=== PATIENT | female | born 1980 | race Caucasian/White ===

== ENCOUNTER 2020-10-09 15:56 | Observation (INO) | payer OTHER ==
[~2020-10-09 15:56] MED LIST: ceFAZolin 1 GM in Premix Bag 1 BAG IV SCH
[2020-10-09 16:12] VITALS: PULSE 75
[2020-10-09] MEDS ORDERED: Dextrose 5%-Lactated Ringers 1,000 ML ONE (16:42)
[2020-10-09] MEDS ORDERED: Dextrose 5%-Lactated Ringers 1,000 ML IV SCH ×2 (16:45→19:30)
--- NOTE | 2020-10-09 17:55 | US ---
Biophysical profile: Multiple real-time images were obtained transabdominally. Comparison: No previous obstetrical imaging is available. Dates: Working LILLIE: 11/08/20, gestational age 35 weeks 5 days Current ultrasound: LILLIE 11/02/20, gestational age 36 weeks 4 days presentation: Cephalic, no findings of placental abruption or previa Placenta: Anterior Amniotic fluid: AUGIE 16.4 cm Measurements: BPD: 8.96 cm - 36 weeks 2 days Head circumference: 32.92 cm - 37 weeks 3 days Abdominal circumference: 33.58 cm - 37 weeks 3 days Femur length: 6.85 cm - 35 weeks 1 day Estimated weight: 3032 g (6 lbs. 11 oz.), estimated weight at the 79th percentile for age by working LILLIE Heart rate: 140 bpm Cervical length: 4.4 cm Biophysical profile: movement 2, breathing movement 2, tone 2, amniotic fluid volume 2 Impression: 1. Single intrauterine fetus currently cephalic in presentation. Dates as noted above. 2. 8 out of 8 on biophysical profile. 3. No evidence of placental abruption or placenta previa. Diagnostic code #1
[2020-10-09] MEDS ORDERED: NIFEdipine 10 MG Cap PO ONE ×2 (18:07→19:24)
[2020-10-09] MEDS ORDERED: Betamethasone Acetate/Betamethasone Sod Phosphate 30 MG/5 ML MDV IM SCH (19:30)
--- NOTE | 2020-10-09 19:46 | PCM.LDHP ---
L&D History of Present Illness - General Date of Service: 10/09/20 Admit Problem/Dx: Patient Status Order with Admit Dx/Problem 10/09/20 16:07 Patient Status [ADT] Routine Admission Diagnosis/Problem Admission Diagnosis/Problem Source of Information: Patient History Limitations: Reports: No Limitations - History of Present Illness Introduction:: 40-year-old -0-0-1 LILLIE 11/08/2020 estimated gestational age today 35 weeks 5 days patient seen yesterday with threatened labor contractions subsided and patient was dismissed no cervical changes. Patient return to labor and delivery today complaining of contractions noted to be having contractions every 3 to 5 minutes on nonstress test which was reactive with at least 2 variable decelerations corrected with change of position. Patient has had no leakage of fluid no dysuria frequency or urgency however a straight cath UA returned no nitrites few bacteria patient had GBS collected yesterday and returned positive today patient will be started on ampicillin. Patient had biophysical profile that was 01/28 see written report. Estimated weight 303 2 g / 6 pounds 11 ounces. 79th percentile for age. heart rate 140. Cervical length 4.4 cm. Patient was given IV hydration, p.o. hydration, and also given Procardia 30 mg p.o. at approximately 1800 hrs. At 1930 hrs. 20 additional milligrams of Procardia ordered and then 10 mg every 4 hours beginning at midnight. Continue with IV hydration. I talked with printed circuit board designer Dr. Pang since patient is 35 weeks 5 days he would recommend shipping if any cervical changes. (Thus far no cervical changes) patient will also be given Celestone 12 mg IM now and repeat in [address] Pang agreement. GBS positive Blood type a positive antibody screen negative hemoglobin 13.7 on 04/21/2020. Platelets 359,000 at that time. Rubella immune. (+) Syphilis test nonreactive. Hepatitis B surface antigen nonreactive, hepatitis C nonreactive, HIV nonreactive. GC and Chlamydia probe none detected. 08/01/2020 hemoglobin 12.2. Platelets 309,000. 1 hour OB glucose screen 90. Antibody screen negative. GBS detected on 09/11/2015. Begin IV antibiotics. As noted above. Examination at 1900 hrs. cervix is closed, long, posterior, soft. Floating presenting part cephalic by ultrasound. Does have a history of low- lying placenta on sonogram today placenta estimated to be anterior no mention of low-lying placenta. Talk with the patient concerning the fact that shipment to [place] might be necessary before 36 weeks begins as pediatricians are hesitant to care for newborns that are less than 36 weeks because of staffing, difficulty of having nurses to care for level 2 . Patient and in agreement with plan. 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 (See Below) Other OB/BYN History: Ovarian cysts Musculoskeletal History: Reports: Other (See Below) Other Musculoskeletal History: Sciatica - Past Surgical History HEENT Surgical History: Reports: Oral Surgery, Tonsillectomy Social & Family History - Living Situation & Occupation Living situation: Reports: Occupation: Employed H&P Review of Systems - Review of Systems: Review Of Systems: See Below General: Reports: No Symptoms HEENT: Reports: No Symptoms Pulmonary: Reports: No Symptoms Cardiovascular: Reports: No Symptoms Gastrointestinal: Reports: No Symptoms Genitourinary: Reports: No Symptoms (Urine culture pending.) Musculoskeletal: Reports: No Symptoms Skin: Reports: No Symptoms Psychiatric: Reports: No Symptoms Neurological: Reports: No Symptoms Hematologic/Lymphatic: Reports: No Symptoms Immunologic: Reports: No Symptoms L&D Exam - Exam Exam: See Below - Vital Signs Vital Signs: Last Vital Signs Temp 98.8 F 10/09/20 16:11 Pulse 75 10/09/20 16:11 Resp 16 10/09/20 16:11 BP 110/58 L 10/09/20 18:18 Pulse Ox 100 10/09/20 16:11 Weight: 185 lb - OB Specific Contraction Intensity: Mild to Moderate Movement: Active Heart Tones: Present Heart Tones per Min: 140 Heart Rate (FHR) Variability: Moderate (6-25 bmp) Presentation: Vertex - Thomason Score Thomason Score Cervix Position: Posterior Thomason Score Consistency: Soft Thomason Score Effacement: 0-30% Thomason Score Dilation: Closed Thomason Score Infant's Station: -3 Thomason Score Total: 2 - Exam General: Alert, Oriented HEENT: Conjunctiva Clear, Mucosa Moist & [place] Neck: Supple, Trachea Midline Lungs: Clear to Auscultation, Normal Respiratory Effort Cardiovascular: Regular Rate, Regular Rhythm GI/Abdominal Exam: Normal Bowel Sounds, Other (Contractions every 3 to 5 minutes) Genitourinary: Normal external exam Extremities: Normal Inspection, Non-Tender, No Pedal Edema, Normal Capillary Refill Skin: Warm, Dry, Intact Psychiatric: Alert, Normal Affect, Normal Mood - Patient Data Lab Results Last 24 hrs: Laboratory Results - last 24 hr 10/09/20 Range/Units 17:00 Urine Color Yellow (Yellow) Urine Appearance Clear (Clear) Urine pH 6.5 (5.0-8.0) Ur Specific [place] 1.015 (1.005-1.030) Urine Protein Negative (Negative) Urine Glucose (UA) Negative (Negative) Urine Ketones Negative (Negative) Urine Occult Blood Negative (Negative) Urine Nitrite Negative (Negative) Urine Bilirubin Negative (Negative) Urine Urobilinogen 0.2 (0.2-1.0) Ur Leukocyte Esterase Negative (Negative) Urine RBC 0-5 (0-5) /hpf Urine WBC 0-5 (0-5) /hpf Ur Squamous Epith Cells 0-5 (0-5) /hpf Amorphous Sediment Few H (NOT SEEN) /hpf Urine Bacteria Few (FEW) /hpf Urine Mucus Not seen (FEW) /hpf - Problem List (1) 35 weeks gestation of SNOMED Code(s): 80409211 ICD Code: Z3A.35 - 35 WEEKS GESTATION OF Status: Acute Current Visit: Yes (2) GBS (group B Streptococcus carrier), +RV culture, currently SNOMED Code(s): 4404739829107, 225254397, 9436617403824 ICD Code: O99.820 - STREPTOCOCCUS B CARRIER STATE COMPLICATING Status: Acute Current Visit: Yes (3) History of section complicating SNOMED Code(s): 863851793, 513735819 ICD Code: O34.219 - MATERNAL CARE FOR UNSP TYPE SCAR FROM PREVIOUS DEL Status: Acute Current Visit: Yes (4) False labor before 37 completed weeks of gestation, third trimester SNOMED Code(s): 57417127384399686, 93721573200565818 ICD Code: O47.03 - FALSE LABOR BEFORE 37 COMPLETED WEEKS OF GEST, THIRD TRI Status: Acute Current Visit: Yes Problem List Initiated/Reviewed/Updated: No Orders Last 24hrs: Active Orders 24 hr Category Date Time Status Patient Status [ADT] Routine ADT 10/09/20 16:07 Active Non Stress Test [RC] PER UNIT ROUTINE Care 10/09/20 16:07 Active Up ad Sania [RC] ASDIRECTED Care 10/09/20 16:08 Active Vital Signs [RC] PER UNIT ROUTINE Care 10/09/20 16:07 Active Regular Diet [DIET] Diet 10/09/20 Breakfast Active Betamet Acet/Betamet Na Phos [Celestone Soluspan 6 MG/ Med 10/09/20 19:30 Active ML] 12 mg IM ONETIME Dextrose 5%-Lactated Ringers 1,000 ml Med 10/09/20 16:45 Active IV ASDIRECTED Dextrose 5%-Lactated Ringers 1,000 ml Med 10/09/20 19:30 Active IV ASDIRECTED NIFEdipine [Procardia] Med 10/10/20 00:01 Active 10 mg PO Q4H Resuscitation Status Routine Resus Stat 10/09/20 16:07 Ordered Medication Orders Betamethasone Acet/Betameth SodPhos (Betamethasone Acetate/Betamethasone Sod Phosphate 30 Mg/5 Ml Mdv) 12 mg IM ONETIME PEDRO Dextrose/Lactated Ringer's (Dextrose 5%-Lactated Ringers) 1,000 mls @ 500 mls/hr IV ASDIRECTED PEDRO Last Admin: 10/09/20 16:48 Dose: 500 mls/hr Documented by: HUNTER Dextrose/Lactated Ringer's (Dextrose 5%-Lactated Ringers) 1,000 mls @ 150 mls/hr IV ASDIRECTED PEDRO Nifedipine (Nifedipine 10 Mg Cap) 10 mg PO Q4H PEDRO
[2020-10-09] MEDS ORDERED: ceFAZolin 1 GM Vial IM ONE (20:06)
[2020-10-09] MEDS ORDERED: ceFAZolin 1 GM Vial IV ONE (20:06)
[2020-10-09] MEDS ORDERED: diphenhydrAMINE 50 MG/ML SDV IVPUSH PRN (20:08)
[2020-10-09] MEDS ORDERED: ceFAZolin 2 GM in Premix Bag 1 BAG IV ONE (20:30)
[2020-10-10] MEDS: NIFEdipine 10 MG Cap PO SCH ×4 (00:02→07:24)
[2020-10-10] MEDS ORDERED: ceFAZolin 1 GM in Premix Bag 1 BAG IV SCH (04:00)
--- NOTE | 2020-10-10 05:02 | PCM.DCSUM1 ---
Discharge Summary - Hospital Course Free Text/Narrative:: Patient's contractions subsided patient will be dismissed. Keep appointment at [address] Jackson. Procardia 10 mg p.o. every 4 hours for the next 8 days dispense 48 ND #2. HPI Initial Comments: Patient's contractions subsided patient will be dismissed. Keep appointment at [address] Jackson. Procardia 10 mg p.o. every 4 hours for the next 8 days dispense 48 ND #2. Brief History: Patient's contractions subsided patient will be dismissed. Keep appointment at [address] Jackson. Procardia 10 mg p.o. every 4 hours for the next 8 days dispense 48 ND #2. Diagnosis: Stroke: No - Discharge Data Discharge Date: 10/10/20 Discharge Disposition: Home, Self-Care 01 Condition: Good - Referral to Home Health Primary Care Physician: Monica Albrecht MD - Discharge Diagnosis/Problem(s) (1) 35 weeks gestation of SNOMED Code(s): 96111815 ICD Code: Z3A.35 - 35 WEEKS GESTATION OF Status: Acute Current Visit: Yes (2) GBS (group B Streptococcus carrier), +RV culture, currently SNOMED Code(s): 0774913438474, 271857072, 1402168813177 ICD Code: O99.820 - STREPTOCOCCUS B CARRIER STATE COMPLICATING Status: Acute Current Visit: Yes (3) History of section complicating SNOMED Code(s): 194359950, 568887457 ICD Code: O34.219 - MATERNAL CARE FOR UNSP TYPE SCAR FROM PREVIOUS DEL Status: Acute Current Visit: Yes (4) False labor before 37 completed weeks of gestation, third trimester SNOMED Code(s): 72337337350731184, 47335883873066508 ICD Code: O47.03 - FALSE LABOR BEFORE 37 COMPLETED WEEKS OF GEST, THIRD TRI Status: Acute Current Visit: Yes - Patient Summary/Data Complications: None Consults: None Hospital Course: Contractions subsided. - Patient Instructions Diet: Usual Diet as Tolerated Driving: May Drive Today Showering/Bathing: May Shower Notify Provider of: Fever, Increased Pain, Swelling and Redness, Drainage, Nausea and/or Vomiting - Discharge Plan *PRESCRIPTION DRUG MONITORING PROGRAM REVIEWED*: Not Applicable *COPY OF PRESCRIPTION DRUG MONITORING REPORT IN PATIENT WILLIAM: Not Applicable Prescriptions/Med Rec: NIFEdipine [Procardia] 10 mg PO Q4H #48 cap Home Medications: Home Meds Vit Calc,Iron,Folic [ Vitamins] 1 tab PO DAILY 09/25/15 [History] NIFEdipine [Procardia] 10 mg PO Q4H #48 cap 10/10/20 [Rx] Referrals: Monica Albrecht MD [Primary Care Provider] - (Keep 1100 appointment today) - Discharge Summary/Plan Comment DC Time >30 min.: No - Patient Data Vitals - Most Recent: Last Vital Signs Temp 98.8 F 10/09/20 16:11 Pulse 75 10/09/20 16:11 Resp 16 10/09/20 16:11 BP 100/45 L 10/10/20 04:20 Pulse Ox 100 10/09/20 16:11 Weight - Most Recent: 185 lb Lab Results - Last 24 hrs: Laboratory Results - last 24 hr 10/09/20 Range/Units 17:00 Urine Color Yellow (Yellow) Urine Appearance Clear (Clear) Urine pH 6.5 (5.0-8.0) Ur Specific [place] 1.015 (1.005-1.030) Urine Protein Negative (Negative) Urine Glucose (UA) Negative (Negative) Urine Ketones Negative (Negative) Urine Occult Blood Negative (Negative) Urine Nitrite Negative (Negative) Urine Bilirubin Negative (Negative) Urine Urobilinogen 0.2 (0.2-1.0) Ur Leukocyte Esterase Negative (Negative) Urine RBC 0-5 (0-5) /hpf Urine WBC 0-5 (0-5) /hpf Ur Squamous Epith Cells 0-5 (0-5) /hpf Amorphous Sediment Few H (NOT SEEN) /hpf Urine Bacteria Few (FEW) /hpf Urine Mucus Not seen (FEW) /hpf Med Orders - Current: Current Medications Betamethasone Acet/Betameth SodPhos (Betamethasone Acetate/Betamethasone Sod Phosphate 30 Mg/5 Ml Mdv) 12 mg IM ONETIME PEDRO Last Admin: 10/09/20 19:48 Dose: 12 mg Documented by: Diphenhydramine HCl (Diphenhydramine 50 Mg/Ml Sdv) 25 mg IVPUSH Q4H PRN PRN Reason: Allergies Last Admin: 10/09/20 21:09 Dose: 25 mg Documented by: Dextrose/Lactated Ringer's (Dextrose 5%-Lactated Ringers) 1,000 mls @ 500 mls/hr IV ASDIRECTED [facility] Last Admin: 10/09/20 16:48 Dose: 500 mls/hr Documented by: Dextrose/Lactated Ringer's (Dextrose 5%-Lactated Ringers) 1,000 mls @ 150 mls/hr IV ASDIRECTED [facility] Last Admin: 10/09/20 23:04 Dose: 150 mls/hr Documented by: Nifedipine (Nifedipine 10 Mg Cap) 10 mg PO Q4H [facility] Last Admin: 10/10/20 04:20 Dose: 10 mg Documented by: Discontinued Medications Cefazolin Sodium (Cefazolin 1 Gm Vial) 2 gm IM ONETIME ONE Stop: 10/09/20 20:07 Dextrose/Lactated Ringer's (Dextrose 5%-Lactated Ringers) Confirm Administered Dose 1,000 mls @ as directed .ROUTE .STK-MED ONE Stop: 10/09/20 16:43 Last Admin: 10/09/20 16:45 Dose: Not Given Documented by: Cefazolin Sodium/Dextrose 1 gm (/ Premix) 50 mls @ 100 mls/hr IV Q8HR PEDRO Cefazolin Sodium/Dextrose 1 gm (/ Premix) 50 mls @ 100 mls/hr IV Q8H PEDRO Cefazolin Sodium/Dextrose 2 gm (/ Premix) 50 mls @ 100 mls/hr IV ONETIME ONE Stop: 10/09/20 20:59 Last Admin: 10/09/20 20:36 Dose: 100 mls/hr Documented by: Nifedipine (Nifedipine 10 Mg Cap) 30 mg PO ONETIME ONE Stop: 10/09/20 18:08 Last Admin: 10/09/20 18:18 Dose: 30 mg Documented by: Nifedipine (Nifedipine 10 Mg Cap) 20 mg PO ONETIME ONE Stop: 10/09/20 19:25 Last Admin: 10/09/20 19:45 Dose: 20 mg Documented by:
[2020-10-10 07:25] VITALS: BP 106/64
== END 2020-10-10 07:30 | disposition home or self-care (01) ==
LOC: JD.OBCHECK 15:56 → JD.OB 16:00 → JD.OBCHECK 19:58 → JD.OB 19:58
PROVIDERS: ADMIT Obstetrics & Gynecology; ATTEND Obstetrics & Gynecology
DX: O47.03 False labor before 37 completed weeks of gestation, third trimester (principal); O99.820 Streptococcus B carrier state complicating pregnancy; O34.219 Maternal care for unspecified type scar from previous cesarean delivery; Z88.1 Allergy status to other antibiotic agents; Z3A.35 35 weeks gestation of pregnancy
CPT/HCPCS: 51701; 59025; 76816; 76818; 81001; 96372; 96374; 96375; A9270; G0378; J0690; J0702; J1200; J7121

== ENCOUNTER 2020-11-01 07:05 | Inpatient (IN) | payer BC, OTHER ==
--- NOTE | 2020-10-09 04:15 | PCM.LDHP ---
L&D History of Present Illness - General Date of Service: 10/08/20 Admit Problem/Dx: Admission Diagnosis/Problem Admission Diagnosis/Problem - History of Present Illness Introduction:: Late entry, patient seen 10/08/20 at 0940) 40 year old at 35w4d presents with a small amount of vaginal bleeding and occasional cramping. Known low lying placenta. Small mucous bleeding. 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 General: Reports: No Symptoms HEENT: Reports: No Symptoms Pulmonary: Reports: No Symptoms Cardiovascular: Reports: No Symptoms Gastrointestinal: Reports: No Symptoms Genitourinary: Reports: No Symptoms Musculoskeletal: Reports: No Symptoms Skin: Reports: No Symptoms Psychiatric: Reports: No Symptoms Neurological: Reports: No Symptoms Hematologic/Lymphatic: Reports: No Symptoms Immunologic: Reports: No Symptoms L&D Exam - Exam Exam: See Below - OB Specific Contraction Intensity: Irritability Movement: Active Heart Tones: Present Presentation: Vertex - Exam General: Alert, Oriented HEENT: Conjunctiva Clear, EACs Clear, EOMI, Hearing Intact, PERRLA Neck: Supple, Trachea Midline Lungs: Normal Respiratory Effort Cardiovascular: Regular Rate, Regular Rhythm GI/Abdominal Exam: Normal Bowel Sounds, Soft, Non-Tender, No Organomegaly, No Distention, No Abnormal Bruit Genitourinary: Normal external exam (small amount of blood in vault. Cervix visually closed), Normal bimanual exam, Normal speculum exam Back Exam: Normal Inspection, Full Range of Motion Extremities: Normal Inspection, Normal Range of Motion, Non-Tender, No Pedal Edema, Normal Capillary Refill Skin: Warm, Dry, Intact Psychiatric: Alert, Normal Affect, Normal Mood - Problem List (1) Low lying placenta nos or without hemorrhage, third trimester SNOMED Code(s): 578648219, 906081603 ICD Code: O44.43 - LOW LYING PLACENTA NOS OR WITHOUT HEMOR, THIRD TRIMESTER Status: Acute Problem List Initiated/Reviewed/Updated: Yes Assessment/Plan Comment:: 40 year old 07/24 at 35w4 with low lying placenta, irregular non painful cramping and small amount of bleeding. Discussed options of further observation here versus going home with careful return precautions. Discussed could be early labor in which case would need immediate (repeat planned plus low lying placenta) but could happen in days to weeks. Patient voices understanding, lives nearby, has good transportation and social support and would like to be discharged with close interval followup. GBS collected today as well.
[2020-11-01] MEDS ORDERED: Citric Acid/Sodium Citrate Solution 30 ML Cup PO ONE (07:47)
[2020-11-01] MEDS ORDERED: Metoclopramide 10 MG/2 ML SDV IVPUSH ONE (07:47)
[2020-11-01] MEDS ORDERED: Sodium Chloride 0.9% 10 ML Syringe FLUSH PRN (07:47)
[2020-11-01] MEDS: Lactated Ringers 1,000 ML IV SCH ×2 (08:00→08:46)
--- NOTE | 2020-11-01 08:15 | PCM.PREANE ---
Preanesthetic Assessment - Procedure Proposed Procedure: repeat csection - Anesthesia/Transfusion/Family Hx Anesthesia History: Prior Anesthesia Without Reaction Family History of Anesthesia Reaction: No Transfusion History: No Prior Transfusion(s) Type of Transfusion Reactions: Reports: Unknown - Review of Systems General: No Symptoms Pulmonary: No Symptoms Cardiovascular: No Symptoms Gastrointestinal: No Symptoms Neurological: No Symptoms Other: Reports: None - Physical Assessment NPO Status Date: 10/31/20 NPO Status Time: 23:00 Vital Signs: 99.4 97% 77 14 113/66 Height: 5 ft 7 in Weight: 84.822 kg ASA Class: 2 Mental Status: Alert & Oriented x3 Airway Class: Mallampati = 1 Dentition: Reports: Normal Dentition Thyro-Mental Finger Breadths: 3 Mouth Opening Finger Breadths: 3 ROM/Head Extension: Full Lungs: Clear to Auscultation, Normal Respiratory Effort Cardiovascular: Regular Rate, Regular Rhythm - Lab Values: covid- negative HGB 12.5 platelets 282 - Allergies Allergies/Adverse Reactions: Allergies Allergy/AdvReac Type Severity Reaction Status Date / Time amoxicillin Allergy Rash Verified 11/01/20 08:37 cefazolin [From Ancef] Allergy Hives Verified 11/01/20 08:37 - Blood Blood Available: No - Acknowledgements Anesthesia Type Planned: Spinal Pt an Appropriate Candidate for the Planned Anesthesia: Yes Alternatives and Risks of Anesthesia Discussed w Pt/Guardian: Yes Pt/Guardian Understands and Agrees with Anesthesia Plan: Yes PreAnesthesia Questionnaire HEENT History: Reports: None Cardiovascular History: Reports: None Respiratory History: Reports: None Gastrointestinal History: Reports: None 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: , 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 (See Below) : 2 Para: 1 Other OB/BYN History: Fibroids Musculoskeletal History: Reports: Other (See Below) Other Musculoskeletal History: Sciatica Neurological History: Reports: None Psychiatric History: Reports: None Endocrine/Metabolic History: Reports: None Oncologic (Cancer) History: Reports: None - Past Surgical History HEENT Surgical History: Reports: Oral Surgery, Tonsillectomy Female Surgical History: Reports: Section Musculoskeletal Surgical History: Reports: None Dermatological Surgical History: Reports: None - SUBSTANCE USE Tobacco Use Status *Q: Never Tobacco User Tobacco Use Within Last Twelve Months: No Second Hand Smoke Exposure: No Days Per Week of Alcohol Use: 0 Recreational Drug Use History: No - HOME MEDS Home Medications: Home Meds Vit Calc,Iron,Folic [ Vitamins] 1 tab PO DAILY 09/25/15 [History] Ascorbate Calcium [Vitamin C] 500 mg PO DAILY 10/10/20 [History] Cholecalciferol (Vitamin D3) [Vitamin D3] 1,000 unit PO DAILY 10/10/20 [History] L.acidoph,Paracasei, B.lactis [Probiotic] 1 each PO DAILY 10/10/20 [History] NIFEdipine [Procardia] 10 mg PO Q4H #48 cap 10/10/20 [Rx] Magnesium Oxide [Magnesium] 200 mg PO DAILY 10/31/20 [History] - CURRENT (IN HOUSE) MEDS Current Meds: Current Medications Lactated Ringer's (Ringers, Lactated) 1,000 mls @ 125 mls/hr IV ASDIRECTED PEDRO Sodium Chloride (Sodium Chloride 0.9% 10 Ml Syringe) 10 ml FLUSH ASDIRECTED PRN PRN Reason: Keep Vein Open Discontinued Medications Citric Acid/Sodium Citrate (Citric Acid/Sodium Citrate Solution 30 Ml Cup) 30 ml PO ONETIME ONE Stop: 11/01/20 07:48 Metoclopramide HCl (Metoclopramide 10 Mg/2 Ml Sdv) 10 mg IVPUSH ONETIME ONE Stop: 11/01/20 07:48
[2020-11-01] MEDS ORDERED: Clindamycin Phosphate in D5W 900 MG in Premix Bag 1 BAG IV ONE ×2 (08:24)
[2020-11-01] MEDS ORDERED: Gentamicin 420 MG in Sodium Chloride 0.9% 100 ML IV ONE (08:45)
[2020-11-01] MEDS ORDERED: Morphine PF 10 MG/10 ML SDV ONE (09:14)
[2020-11-01] MEDS ORDERED: Oxytocin 10 Units/1 ML SDV ONE (09:14)
[2020-11-01] MEDS ORDERED: Ketorolac 30 MG/ML SDV ONE (09:14)
[2020-11-01] MEDS ORDERED: Lactated Ringers 2,000 ML ONE (09:14)
[2020-11-01] MEDS ORDERED: Ondansetron 4 MG/2 ML SDV ONE (09:14)
[2020-11-01] MEDS ORDERED: Bupivacaine 0.5% 30 ML SDV ONE (09:16)
[2020-11-01] MEDS ORDERED: fentaNYL 100 MCG/2 ML SDV ONE (10:09)
[2020-11-01] MEDS ORDERED: ePHEDrine 50 MG/ML SDV ONE (10:18)
[2020-11-01] MEDS ORDERED: Methylergonovine 0.2 MG/1 ML Amp ONE (10:39)
--- NOTE | 2020-11-01 10:55 | PCM.POSTAN ---
POST ANESTHESIA ASSESSMENT - MENTAL STATUS Mental Status: Alert, Oriented - VITAL SIGNS Vital Signs: Last Vital Signs Temp 37.4 C 11/01/20 08:02 Pulse 80 11/01/20 08:02 Resp 14 11/01/20 08:02 BP 113/66 11/01/20 08:02 Pulse Ox 98 11/01/20 08:02 1048 105/63 64 10 97% 97.1F - RESPIRATORY Respiratory Status: Respiratory Rate WNL, Airway Patent, O2 Saturation Stable - CARDIOVASCULAR CV Status: Pulse Rate WNL, Blood Pressure Stable - GASTROINTESTINAL GI Status: No Symptoms - PAIN Pain Score: 0 - POST OP HYDRATION Hydration Status: Adequate & Stable
--- NOTE | 2020-11-01 11:14 | PCM.OPNOTE ---
- General Post-Op/Procedure Note Operative Procedure(s): repeat section Findings: Viable female, weight 3630, 8/9 apgars at 1006. Pre Op Diagnosis: prior , desires repeat Post-Op Diagnosis: Same Primary Surgeon: Monica Albrecht Director Of Software Engineering: Usha Pinto Fluid Replacement, Intraop: 2,200 Output, Urine Amount: 150 EBL in mLs: 1,800 Complications: None Condition: Good Free Text/Narrative:: Intake & Output 10/31/20 11/01/20 11/01/20 22:59 06:59 14:59 Intake Total 2200 Balance 2200 The patient was taken to the operating room where spinal anesthesia was dosed to surgical levels without difficulty. The patient was prepped and draped in the usual sterile fashion in the dorsal supine position with a leftward tilt. A Pfannenstiel skin incision was made with the scalpel and carried through to the underlying layer of fascia. The fascia was incised in the midline and extended laterally using Pulido scissors. Danielito clamps were used to elevate the superior aspect of the fascial incision, which was elevated, and the underlying rectus muscles were dissected off bluntly and using Pulido scissors. Attention was then turned to the inferior aspect of the fascial incision, which in similar fashion was grasped with Danielito clamps, elevated, and the underlying rectus muscles were dissected off bluntly and using the pulido. The rectus muscles were dissected in the midline. The peritoneum was entered bluntly; this incision was extended superiorly and inferiorly with good visualization of the bladder. The bladder blade was inserted. The vesicouterine peritoneum was identified and entered sharply using Metzenbaum scissors. This incision was extended laterally and the bladder flap was created digitally. The bladder blade was reinserted. The lower uterine segment was incised in a transverse fashion using the scalpel and with digital traction. Clear fluid was noted. The infant was subsequently delivered by flexing the head to the incision. Body and shoulders followed without difficulty. The cord was clamped and cut. The infant was subsequently handed to the awaiting world language teacher whose presence had been requested.. The placenta was delivered spontaneously intact with a three-vessel cord noted. The uterus was exteriorized and cleared of all clots and debris. The uterine incision was repaired in 2 layers using 0 monocryl. Hemostasis was visualized. Hemostasis was visualized bilaterally. The uterus was returned to the abdomen. The uterine incision was reexamined and it was noted to be hemostatic. The pelvis was copiously irrigated. Abrasion on posterior aspect of uterus rendered hemostatic with floseal. The fascia was closed with 1 PDS suture, and the skin was closed with 3-0 monocryl. Sponge, lap, and instrument counts were correct x2. The patient was stable at the completion of the procedure and was subsequently transferred to the recovery room in stable condition.
[2020-11-01] MEDS ORDERED: diphenhydrAMINE 50 MG/ML SDV IVPUSH PRN (11:54)
[2020-11-01] MEDS ORDERED: Dextrose 5%-Lactated Ringers 1,000 ML IV SCH (11:54)
[2020-11-01] MEDS ORDERED: ePHEDrine 50 MG/ML SDV IVPUSH PRN (11:54)
[2020-11-01] MEDS ORDERED: Naloxone 0.4 MG/ML SDV IVPUSH PRN (11:54)
[2020-11-01] MEDS: Ibuprofen 600 MG Tab PO PRN (17:56)
[2020-11-02] MEDS: Ibuprofen 600 MG Tab PO PRN ×4 (00:54→19:15)
--- NOTE | 2020-11-02 07:45 | PCM48HPAN ---
Post Anesthesia Note - EVALUATION WITHIN 48HRS OF ANESTHETIC Vital Signs in Normal Range: Yes Patient Participated in Evaluation: Yes Respiratory Function Stable: Yes Airway Patent: Yes Cardiovascular Function Stable: Yes Hydration Status Stable: Yes Pain Control Satisfactory: Yes Nausea and Vomiting Control Satisfactory: Yes Mental Status Recovered: Yes Vital Signs: Last Vital Signs Temp 36.6 C 11/02/20 00:48 Pulse 87 11/02/20 00:48 Resp 15 11/02/20 05:00 BP 95/53 L 11/02/20 00:48 Pulse Ox 99 11/02/20 05:00
--- NOTE | 2020-11-02 11:18 | PCM.SN.2 ---
- Free Text/Narrative Note: Post Operative Progress Note POD #1 Subjective: Doing well overall. Ambulating without difficulty. Lochia minimal. Voiding without difficulty after Muniz catheter was removed this morning. Passing flatus. Tolerating regular diet without nausea or vomiting. Pain controlled with oral medications. Breast-feeding with minimal difficulty. Objective: Vitals: Vital Signs - 24 hr 11/01/20 11/01/20 11/01/20 11:30 11:45 14:46 Temperature 36.1 C Temperature [ 36.4 C Temporal] Pulse, 77 83 Peripheral Pulse, 63 Peripheral [ Right Pulse Oximetry] Respiratory 16 13 Rate Blood Pressure 96/48 L 109/53 Blood Pressure 101/74 [Left Upper Arm ] O2 Sat by Pulse 98 98 Oximetry 11/01/20 15:02 Temperature Temperature [ Temporal] Pulse, 87 Peripheral Pulse, Peripheral [ Right Pulse Oximetry] Respiratory Rate Blood Pressure 119/69 Blood Pressure [Left Upper Arm ] O2 Sat by Pulse 100 Oximetry 11/01/20 11/01/20 11/01/20 15:17 15:32 15:48 Temperature Temperature [ Temporal] Pulse, 74 80 87 Peripheral Pulse, Peripheral [ Right Pulse Oximetry] Respiratory Rate Blood Pressure 118/53 L 97/80 111/72 Blood Pressure [Left Upper Arm ] O2 Sat by Pulse 98 97 97 Oximetry 11/01/20 11/01/20 11/01/20 16:02 16:15 17:06 Temperature 37.1 C Temperature [ Temporal] Pulse, 84 82 Peripheral Pulse, Peripheral [ Right Pulse Oximetry] Respiratory 15 15 Rate Blood Pressure 110/89 107/52 L Blood Pressure [Left Upper Arm ] O2 Sat by Pulse 97 97 99 Oximetry 11/01/20 11/01/20 11/01/20 18:00 19:00 20:26 Temperature 36.8 C Temperature [ Temporal] Pulse, 75 Peripheral Pulse, Peripheral [ Right Pulse Oximetry] Respiratory 15 16 16 Rate Blood Pressure 111/57 L Blood Pressure [Left Upper Arm ] O2 Sat by Pulse 98 99 98 Oximetry 11/02/20 11/02/20 11/02/20 00:48 01:00 02:00 Temperature 36.6 C Temperature [ Temporal] Pulse, 87 Peripheral Pulse, Peripheral [ Right Pulse Oximetry] Respiratory 15 15 15 Rate Blood Pressure 95/53 L Blood Pressure [Left Upper Arm ] O2 Sat by Pulse 96 98 99 Oximetry Physical Exam General: Alert and oriented, no acute distress Lungs: Clear to auscultation bilaterally Heart: Regular rate and rhythm Abdomen: Soft, minimal appropriate tenderness, non-distended, fundus midline, nontender and at the umbilicus Incision: Clean, dry and intact, no erythema, bleeding or drainage with Dermabond skin glue in place Extremities: Trace edema in bilateral lower extremities to mid shins, no calf tenderness bilaterally Labs: Laboratory Results - last 24 hr 11/01/20 11/02/20 Range/Units 08:11 04:54 WBC 13.37 H (3.98-10.04) K/mm3 RBC 3.32 L (3.98-5.22) M/mm3 Hgb 10.6 L D (11.2-15.7) gm/dl Hct 32.1 L (34.1-44.9) % MCV 96.7 H D (79.4-94.8) fl MCH 31.9 (25.6-32.2) pg MCHC 33.0 (32.2-35.5) g/dl RDW Std Deviation 44.2 (36.4-46.3) fL Plt Count 307 (182-369) K/mm3 MPV 8.9 L (9.4-12.3) fl Neut % (Auto) 81.2 H (34.0-71.1) % Lymph % (Auto) 12.1 L (19.3-51.7) % [place] % (Auto) 5.3 (4.7-12.5) % Eos % (Auto) 1.1 (0.7-5.8) Baso % (Auto) 0.1 (0.1-1.2) % Neut # (Auto) 10.84 H (1.56-6.13) K/mm3 Lymph # (Auto) 1.62 (1.18-3.74) K/mm3 [place] # (Auto) 0.71 H (0.24-0.36) K/mm3 Eos # (Auto) 0.15 (0.04-0.36) K/mm3 Baso # (Auto) 0.02 (0.01-0.08) K/mm3 RPR Non-reactive (NONREACTIVE) ASSESSMENT: 40-year-old female -0-0-2 s/p repeat section POD #1 for history of section, complicated by status and advanced maternal age PLAN: Doing well Breast-feeding with minimal difficulty. Assist as needed Incision healing well. Continue to keep clean and dry. Lochia minimal. Continue to monitor for appropriate lochia. Continue routine post-operative care Anticipate discharge home tomorrow Nick Ocampo MD 11:14 AM 11/02/2020
[2020-11-02] MEDS: Simethicone 80 MG Tab.Chew PO PRN ×2 (15:39→19:15)
[2020-11-02] MEDS ORDERED: Acetaminophen/oxyCODONE 325-5 MG Tab PO PRN (19:41)
[2020-11-02] MEDS ORDERED: Simethicone 80 MG Tab.Chew PO PRN (19:44)
[2020-11-02] MEDS: Acetaminophen/oxyCODONE 325-5 MG Tab PO PRN (19:58)
[2020-11-03] MEDS: Acetaminophen/oxyCODONE 325-5 MG Tab PO PRN ×2 (01:52→11:04)
[2020-11-03] MEDS: Ibuprofen 600 MG Tab PO PRN (08:38)
[2020-11-03 09:01] VITALS: BP 112/50; PULSE 93
--- NOTE | 2020-11-03 09:05 | PCM.DCSUM1 ---
Discharge Summary - Hospital Course Free Text/Narrative:: Dali is a 40-year-old 2 para 1-0-0-1 female admitted for elective repeat section. Diagnosis: Stroke: No - Discharge Data Discharge Date: 11/03/20 Discharge Disposition: Home, Self-Care 01 Condition: Good - Referral to Home Health Primary Care Physician: Monica Albrecht MD - Patient Summary/Data Operative Procedure(s) Performed: repeat section - Patient Instructions Diet: Regular Diet as Tolerated (Nursing diet with increased calories and calcium as recommended) Activity: As Tolerated (No intercourse or tampons until bleeding resolves. No lifting greater than 15 pounds or driving a car x7 to 10 days.) Driving: Do Not Drive Showering/Bathing: May Shower Wound/Incision Care: Keep Operative Site/Wound Site Clean and Dry Notify Provider of: Fever, Increased Pain, Swelling and Redness, Nausea and/or Vomiting - Discharge Plan Prescriptions/Med Rec: Acetaminophen/oxyCODONE [Percocet 325-5 MG] 2 tab PO Q6HR PRN #20 tablet PRN Reason: Pain (Severe 7-10) Home Medications: Home Meds Vit Calc,Iron,Folic [ Vitamins] 1 tab PO DAILY 09/25/15 [History] Ascorbate Calcium [Vitamin C] 500 mg PO DAILY 10/10/20 [History] Cholecalciferol (Vitamin D3) [Vitamin D3] 1,000 unit PO DAILY 10/10/20 [History] L.acidoph,Paracasei, B.lactis [Probiotic] 1 each PO DAILY 10/10/20 [History] Magnesium Oxide [Magnesium] 200 mg PO DAILY 10/31/20 [History] Acetaminophen/oxyCODONE [Percocet 325-5 MG] 2 tab PO Q6HR PRN #20 tablet 11/03/20 [Rx] Ibuprofen [Motrin] 600 mg PO Q6H PRN tablet 11/03/20 [Rx] Referrals: Monica Albrecht MD [Primary Care Provider] - (Patient is to call the clinicmake a postoperative important was Dr. Albrecht.) - Discharge Summary/Plan Comment DC Time >30 min.: No Discharge Summary/Plan Comment: Discharge instructions: 1. Discharge home 2. Diet, activity and follow-up discussed with patient. Recommend nursing diet with increased calories and calcium. 3. Precautions given concern increased pain, bleeding, temperature, signs/symptoms of DVT/PE. 4. Medications per home medication was printed, discussed with and given to the patient. 5. Return to clinic-Dr. Albrecht[facility] in 2 weeks. Diagnosis: 1. Term -delivered 2. History of previous x1 with desire for repeat section Condition: Good - Patient Data Vitals - Most Recent: Last Vital Signs Temp 36.6 C 11/03/20 04:46 Pulse 81 11/03/20 04:48 Resp 15 11/03/20 04:46 BP 105/60 11/03/20 04:46 Pulse Ox 95 11/03/20 04:48 Weight - Most Recent: 84.822 kg I&O - Last 24 hours: Intake & Output 11/02/20 11/03/20 11/03/20 22:59 06:59 14:59 Intake Total 500 Balance 500 Med Orders - Current: Current Medications Diphenhydramine HCl (Diphenhydramine 50 Mg/Ml Sdv) 25 mg IVPUSH Q6H PRN PRN Reason: Itching or Nausea Ephedrine Sulfate (Ephedrine 50 Mg/Ml Sdv) 5 mg IVPUSH SEECOMMENT PRN PRN Reason: Other Ibuprofen (Ibuprofen 600 Mg Tab) 600 mg PO Q6H PRN PRN Reason: mild pain or fever Last Admin: 11/03/20 08:38 Dose: 600 mg Documented by: Naloxone HCl (Naloxone 0.4 Mg/Ml Sdv) 0.1 mg IVPUSH SEECOMMENT PRN PRN Reason: Respiratory Depression Oxycodone/Acetaminophen (Acetaminophen/Oxycodone 325-5 Mg Tab) 1 tab PO Q4H PRN PRN Reason: Pain (moderate 4-6) Oxycodone/Acetaminophen (Acetaminophen/Oxycodone 325-5 Mg Tab) 2 tab PO Q4H PRN PRN Reason: Pain (severe 7-10) Last Admin: 11/03/20 01:52 Dose: 2 tab Documented by: Simethicone (Simethicone 80 Mg Tab.Chew) 160 mg PO Q4HR PRN PRN Reason: gas pain Last Admin: 11/03/20 01:52 Dose: 160 mg Documented by: Discontinued Medications Bupivacaine HCl (Bupivacaine 0.5% 30 Ml Sdv) Confirm Administered Dose 30 ml .ROUTE .STK-MED ONE Stop: 11/01/20 09:17 Last Admin: 11/01/20 10:03 Dose: 15 ml Documented by: Citric Acid/Sodium Citrate (Citric Acid/Sodium Citrate Solution 30 Ml Cup) 30 ml PO ONETIME ONE Stop: 11/01/20 07:48 Last Admin: 11/01/20 08:41 Dose: 30 ml Documented by: Ephedrine Sulfate (Ephedrine 50 Mg/Ml Sdv) Confirm Administered Dose 50 mg .ROUTE .STK-MED ONE Stop: 11/01/20 10:19 Fentanyl (Fentanyl 100 Mcg/2 Ml Sdv) Confirm Administered Dose 100 mcg .ROUTE .STK-MED ONE Stop: 11/01/20 10:10 Lactated Ringer's (Ringers, Lactated) 1,000 mls @ 125 mls/hr IV ASDIRECTED [facility] Last Admin: 11/01/20 08:46 Dose: 999 mls/hr Documented by: Clindamycin Phosphate 900 mg/ (Premix) 50 mls @ 100 mls/hr IV ONETIME ONE Stop: 11/01/20 08:53 Last Admin: 11/01/20 08:41 Dose: 100 mls/hr Documented by: Gentamicin Sulfate 420 mg/ (Sodium Chloride) 110.5 mls @ 110.5 mls/hr IV ONETIME ONE Stop: 11/01/20 09:44 Last Admin: 11/01/20 09:15 Dose: 110.5 mls/hr Documented by: Lactated Ringer's (Ringers, Lactated) Confirm Administered Dose 2,000 mls @ as directed .ROUTE .STK-MED ONE Stop: 11/01/20 09:15 Dextrose/Lactated Ringer's (Dextrose 5%-Lactated Ringers) 1,000 mls @ 125 mls/hr IV ASDIRECTED [facility] Stop: 11/01/20 19:53 Last Admin: 11/01/20 15:58 Dose: 125 mls/hr Documented by: Ketorolac Tromethamine (Ketorolac 30 Mg/Ml Sdv) Confirm Administered Dose 30 mg .ROUTE .STK-MED ONE Stop: 11/01/20 09:15 Methylergonovine Maleate (Methylergonovine 0.2 Mg/1 Ml Amp) Confirm Administered Dose 0.2 mg .ROUTE .STK-MED ONE Stop: 11/01/20 10:40 Last Admin: 11/01/20 10:37 Dose: 0.2 mg Documented by: Metoclopramide HCl (Metoclopramide 10 Mg/2 Ml Sdv) 10 mg IVPUSH ONETIME ONE Stop: 11/01/20 07:48 Last Admin: 11/01/20 08:41 Dose: 10 mg Documented by: Miscellaneous Medication (Phenylephrine Hcl In 0.9% Nacl 1 Mg/10 Ml Syringe) Confirm Administered Dose 1 mg .ROUTE .STK-MED ONE Stop: 11/01/20 10:19 Morphine Sulfate (Morphine Pf 10 Mg/10 Ml Sdv) Confirm Administered Dose 10 mg .ROUTE .STK-MED ONE Stop: 11/01/20 09:15 Ondansetron HCl (Ondansetron 4 Mg/2 Ml Sdv) Confirm Administered Dose 4 mg .ROUTE .STK-MED ONE Stop: 11/01/20 09:15 Oxytocin (Oxytocin 10 Units/1 Ml Sdv) Confirm Administered Dose 20 unit .ROUTE .STK-MED ONE Stop: 11/01/20 09:15 Simethicone (Simethicone 80 Mg Tab.Chew) 80 mg PO Q4H PRN PRN Reason: Gas Last Admin: 11/02/20 19:15 Dose: 80 mg Documented by: Sodium Chloride (Sodium Chloride 0.9% 10 Ml Syringe) 10 ml FLUSH ASDIRECTED PRN PRN Reason: Keep Vein Open
== END 2020-11-03 11:10 | disposition home or self-care (01) | DRG 786 ==
LOC: JD.OB 07:06
PROVIDERS: ADMIT Obstetrics & Gynecology; ATTEND Obstetrics & Gynecology
PROC: 10D00Z1 Extraction of Products of Conception, Low, Open Approach (ICD-10-PCS; principal; 2020-11-01)
DX: O34.211 Maternal care for low transverse scar from previous cesarean delivery (principal); O44.53 Low lying placenta with hemorrhage, third trimester; Z3A.35 35 weeks gestation of pregnancy; Z37.0 Single live birth; Z88.0 Allergy status to penicillin; Z20.822 Contact with and (suspected) exposure to COVID-19
CPT/HCPCS: 01961; 36415; 59025; 85025; 86592; 86850; 86900; 86901; A9270-GY; J1580; J1885; J2210; J2270; J2370; J2405; J2590; J2765; J3010; J3490; J7120; J7121; U0002

== ENCOUNTER 2021-02-25 18:16 | Emergency (ER) | payer OTHER | END 2021-02-25 19:24 | disposition left against medical advice (07) | LOC: JD.ED 18:16 | DX: Z53.21 Procedure and treatment not carried out due to patient leaving prior to being seen by health care provider (principal) ==